=== PATIENT | male | born 1975 | race Caucasian/White ===

== ENCOUNTER 2017-08-17 11:27 | Observation (INO) | payer BC ==
[2017-08-17] MEDS ORDERED: Aspirin 81 MG Tab.Chew PO ONE (11:36)
[2017-08-17] MEDS ORDERED: Nitroglycerin 2% Oint 1 GM UD Packet TOP ONE (11:43)
--- NOTE | 2017-08-17 11:43 | EDM.PDOC ---
ED HPI GENERAL MEDICAL PROBLEM - General Chief Complaint: Chest Pain Stated Complaint: CHEST PAIN Time Seen by Provider: 08/17/17 11:38 - History of Present Illness INITIAL COMMENTS - FREE TEXT/NARRATIVE: HISTORY AND PHYSICAL: History of present illness: Patient is a 41-year-old white male history of hypertension who was also a smoker who presents with left-sided chest pain that started approximately 8 AM he describes this as a squeezing he denies associated shortness breath palpitations nausea vomiting or diaphoresis he does continue to have this pain at this time. Review of systems: As per history of present illness and below otherwise all systems reviewed and negative. Past medical history: As per history of present illness and as reviewed below otherwise noncontributory. Surgical history: As per history of present illness and as reviewed below otherwise noncontributory. Social history: No reported history of drug or alcohol abuse. Family history: As per history of present illness and as reviewed below otherwise noncontributory. Physical exam: HEENT: Atraumatic, normocephalic, pupils reactive, negative for conjunctival pallor or scleral icterus, mucous membranes moist, throat clear, neck supple, nontender, trachea midline. Lungs: Clear to auscultation, breath sounds equal bilaterally, chest nontender. Heart: S1S2, regular, negative for clicks, rubs, or JVD. Abdomen: Soft, nondistended, nontender. Negative for masses or hepatosplenomegaly. Negative for costovertebral tenderness. Pelvis: Stable nontender. Genitourinary: Deferred. Rectal: Deferred. Extremities: Atraumatic, negative for cords or calf pain. Neurovascular unremarkable. Neuro: Awake, alert, oriented. Cranial nerves II through XII unremarkable. Cerebellum unremarkable. Motor and sensory unremarkable throughout. Exam nonfocal. Diagnostics: CBC CMP troponin PT/INR chest x-ray EKG Therapeutics: IV O2 monitor aspirin 324 mg by mouth Nitropaste 1 inch to chest wall Impression: # 1 chest pain #2 history of hypertension Definitive disposition and diagnosis as appropriate pending reevaluation and review of above. - Related Data Allergies Allergy/AdvReac Type Severity Reaction Status Date / Time Penicillins Allergy Hives Verified 08/17/17 11:31 ED ROS GENERAL - Review of Systems Review Of Systems: ROS reveals no pertinent complaints other than HPI. ED EXAM, GENERAL - Physical Exam Exam: See Below Course - Vital Signs Last Recorded V/S: Last Vital Signs Temp 36.5 C 08/17/17 11:31 Pulse 85 08/17/17 12:06 Resp 20 08/17/17 12:06 BP 137/70 08/17/17 12:06 Pulse Ox 94 L 08/17/17 12:06 - Orders/Labs/Meds Orders: Active Orders 24 hr Category Date Time Status EKG Documentation Completion [RC] STAT Care 08/17/17 11:36 Active Nitroglycerin [Nitrostat] Med 08/17/17 11:36 Active 0.4 mg SL Q5M PRN Medication Orders Nitroglycerin (Nitrostat) 0.4 mg SL Q5M PRN PRN Reason: Chest Pain Last Admin: 08/17/17 11:59 Dose: 0.4 mg Admin: 08/17/17 11:49 Dose: 0.4 mg Labs: Laboratory Tests 08/17/17 08/17/17 Range/Units 11:43 11:43 WBC 10.97 (4.0-11.0) K/uL RBC 5.60 (4.50-5.90) M/uL Hgb 17.2 H (13.0-17.0) g/dL Hct 47.1 (38.0-50.0) % MCV 84.1 (80.0-98.0) fL MCH 30.7 (27.0-32.0) pg MCHC 36.5 (31.0-37.0) g/dL RDW Std Deviation 41.6 (28.0-62.0) fl RDW Coeff of Amanda 14 (11.0-15.0) % Plt Count 212 (150-400) K/uL MPV 10.00 (7.40-12.00) fL Neut % (Auto) 51.8 (48.0-80.0) % Lymph % (Auto) 38.8 (16.0-40.0) % [place] % (Auto) 7.6 (0.0-15.0) % Eos % (Auto) 1.5 (0.0-7.0) % Baso % (Auto) 0.3 (0.0-1.5) % Neut # (Auto) 5.7 (1.4-5.7) K/uL Lymph # (Auto) 4.3 H (0.6-2.4) K/uL [place] # (Auto) 0.8 (0.0-0.8) K/uL Eos # (Auto) 0.2 (0.0-0.7) K/uL Baso # (Auto) 0.0 (0.0-0.1) K/uL Nucleated RBC % 0.0 /100WBC Nucleated RBCs # 0 K/uL Sodium 141 (136-148) mmol/L Potassium 3.7 (3.5-5.1) mmol/L Chloride 103 (98-107) mmol/L Carbon Dioxide 26.6 (21.0-32.0) mmol/L BUN 14 (7.0-18.0) mg/dL Creatinine 0.9 (0.8-1.3) mg/dL Est Cr Clr Drug Dosing 123.05 mL/min Estimated GFR (MDRD) > 60.0 ml/min Glucose 117 H (74-106) mg/dL Calcium 9.7 (8.5-10.1) mg/dL Total Bilirubin 0.4 (0.2-1.0) mg/dL AST 25 (15-37) IU/L ALT 45 (14-63) IU/L Alkaline Phosphatase 83 (46-116) U/L Troponin I < 0.050 (0.000-0.056) ng/mL Total Protein 7.8 (6.4-8.2) g/dL Albumin 4.0 (3.4-5.0) g/dL Globulin 3.8 H (2.0-3.5) g/dL Albumin/Globulin Ratio 1.1 L (1.3-2.8) Meds: Medications Generic Name Dose Route Start Last Admin Trade Name Freq PRN Reason Stop Dose Admin Nitroglycerin 0.4 mg 08/17/17 11:36 08/17/17 11:59 Nitrostat SL 0.4 mg Q5M PRN Administration Chest Pain Discontinued Medications Generic Name Dose Route Start Last Admin Trade Name Freq PRN Reason Stop Dose Admin Aspirin 324 mg 08/17/17 11:36 08/17/17 11:50 Aspirin PO 08/17/17 11:37 324 mg ONETIME ONE Administration Nitroglycerin 1 gm 08/17/17 11:43 08/17/17 12:04 Nitro-Bid 2% TOP 08/17/17 11:44 1 gm ONETIME ONE Administration Departure - Departure Time of Disposition: 12:36 Disposition: Refer to Observation Condition: Good Clinical Impression: Chest pain - Discharge Information Forms: ED Department Discharge
[2017-08-17] MEDS: Nitroglycerin 0.4 MG Tab.SL SL PRN ×2 (11:49→11:59)
--- NOTE | 2017-08-17 12:22 | CR ---
EXAMINATION: Portable chest radiograph. HISTORY: Chest pain. FINDINGS: The trachea is midline. The cardiomediastinal silhouette is within normal limits. No pulmonary infilt rates, effusions or pneumothorax. Osseous structures appear unremarkable. IMPRESSION: No acute cardiopulmonary process.
[2017-08-17 12:28] LABS: CHLORIDE,CL 103 mmol/L (98-107); SODIUM,NA 141 mmol/L (136-148)
[2017-08-17] MEDS ORDERED: Ondansetron 4 MG Tab.DIS PO PRN (13:07)
[2017-08-17] MEDS ORDERED: Acetaminophen 325 MG Tab PO PRN (13:07)
[2017-08-17] MEDS ORDERED: Albuterol/Ipratropium 3.0-0.5 MG/3 ML Neb Soln NEB PRN (13:07)
[2017-08-17] MEDS ORDERED: Enoxaparin 40 MG/0.4 ML Syringe SUBCUT SCH (13:15)
--- NOTE | 2017-08-17 13:53 | PCM.HP ---
H&P History of Present Illness - General Date of Service: 08/17/17 Admit Problem/Dx: Admission Diagnosis/Problem Admission Diagnosis/Problem Chest pain Source of Information: Patient History Limitations: Reports: No Limitations - History of Present Illness Initial Comments - Free Text/Narative: 41-year-old male with hypertension and dyslipidemia that is being admitted for an ACS rule out. Patient began having chest pain at 8 AM this morning and felt a "weird sensation" in his left arm. The patient described his chest as tight at that time and squeezing. He did not have any shortness of breath, palpitations, nausea, vomiting or diaphoresis. No prior history of heart attack. States that his blood pressure has been well controlled with his current medications. He did take his blood pressure medications this morning. Patient is a current smoker. He currently denies any chest pain, palpitations, shortness of breath, wheezing, cough, abdominal pain, nausea, vomiting, aspiration, diarrhea, numbness/tingling/weakness in the upper and lower extremities bilaterally, fever. ER course: Patient was given 2 nitroglycerin which resolved his chest pain. CBC, CMP, initial troponin and chest x-ray were negative. Patient did receive an aspirin as well in the ER. chest Pain Score (Numeric/FACES): 8 - Related Data Allergies/Adverse Reactions: Allergies Allergy/AdvReac Type Severity Reaction Status Date / Time Penicillins Allergy Hives Verified 08/17/17 11:31 Home Medications: Home Meds Hydrochlorothiazide 1 tab PO DAILY 08/17/17 [History] Sertraline [Zoloft] 1 tab PO BEDTIME 08/17/17 [History] Simvastatin 40 mg PO BEDTIME 08/17/17 [History] amLODIPine Besylate [Amlodipine Besylate] 1 tab PO DAILY 08/17/17 [History] Past Medical History HEENT History: Reports: None Cardiovascular History: Reports: High Cholesterol, Hypertension Respiratory History: Reports: None Gastrointestinal History: Reports: None Genitourinary History: Reports: None Musculoskeletal History: Reports: None Neurological History: Reports: None Psychiatric History: Reports: None Endocrine/Metabolic History: Reports: None Hematologic History: Reports: None Immunologic History: Reports: None Oncologic (Cancer) History: Reports: None Dermatologic History: Reports: None - Past Surgical History Head Surgeries/Procedures: Reports: None HEENT Surgical History: Reports: None Cardiovascular Surgical History: Reports: None Respiratory Surgical History: Reports: None GI Surgical History: Reports: None Endocrine Surgical History: Reports: None Neurological Surgical History: Reports: None Musculoskeletal Surgical History: Reports: Other (See Below) Other Musculoskeletal Surgeries/Procedures:: knee surgery Oncologic Surgical History: Reports: None Dermatological Surgical History: Reports: None Social & Family History - Family History Family Medical History: Noncontributory - Tobacco Use Smoking Status *Q: Current Every Day Smoker Years of Tobacco use: 20 Packs/Tins Daily: 1 Used Tobacco, but Quit: No Second Hand Smoke Exposure: No - Caffeine Use Caffeine Use: Reports: Coffee - Recreational Drug Use Recreational Drug Use: No H&P Review of Systems - Review of Systems: Review Of Systems: See Below General: Reports: No Symptoms HEENT: Reports: No Symptoms Pulmonary: Reports: No Symptoms Cardiovascular: Reports: Chest Pain Gastrointestinal: Reports: No Symptoms Genitourinary: Reports: No Symptoms Musculoskeletal: Reports: No Symptoms Skin: Reports: No Symptoms Psychiatric: Reports: No Symptoms Neurological: Reports: No Symptoms Hematologic/Lymphatic: Reports: No Symptoms Immunologic: Reports: No Symptoms Exam - Exam Exam: See Below - Vital Signs Vital Signs: Last Vital Signs Temp 97 F 08/17/17 13:26 Pulse 74 08/17/17 13:26 Resp 18 08/17/17 13:26 BP 161/61 H 08/17/17 13:26 Pulse Ox 96 08/17/17 13:26 Weight: 312 lb 14.4 oz - Exam General: Alert, Oriented, Cooperative HEENT: Conjunctiva Clear, Hearing Intact, Mucosa Moist & [place], PERRLA Lungs: Clear to Auscultation, Normal Respiratory Effort Cardiovascular: Regular Rate, Regular Rhythm GI/Abdominal Exam: Normal Bowel Sounds, Soft, Non-Tender, No Organomegaly, No Distention, No Abnormal Bruit, No Mass, Pelvis Stable Extremities: Normal Inspection, Normal Range of Motion, Non-Tender, No Pedal Edema, Normal Capillary Refill Peripheral Pulses: 2+: Radial (L), Radial (R), Posterior Tibial (L), Posterior Tibial (R) Skin: Warm, Dry, Intact Neuro Extensive - Mental Status: Alert, Oriented x3, Normal Mood/Affect, Normal Cognition Psychiatric: Alert, Normal Affect, Normal Mood - Patient Data Lab Results Last 24 hrs: Laboratory Results - last 24 hr 08/17/17 08/17/17 Range/Units 11:43 11:43 WBC 10.97 (4.0-11.0) K/uL RBC 5.60 (4.50-5.90) M/uL Hgb 17.2 H (13.0-17.0) g/dL Hct 47.1 (38.0-50.0) % MCV 84.1 (80.0-98.0) fL MCH 30.7 (27.0-32.0) pg MCHC 36.5 (31.0-37.0) g/dL RDW Std Deviation 41.6 (28.0-62.0) fl RDW Coeff of Amanda 14 (11.0-15.0) % Plt Count 212 (150-400) K/uL MPV 10.00 (7.40-12.00) fL Neut % (Auto) 51.8 (48.0-80.0) % Lymph % (Auto) 38.8 (16.0-40.0) % [place] % (Auto) 7.6 (0.0-15.0) % Eos % (Auto) 1.5 (0.0-7.0) % Baso % (Auto) 0.3 (0.0-1.5) % Neut # (Auto) 5.7 (1.4-5.7) K/uL Lymph # (Auto) 4.3 H (0.6-2.4) K/uL [place] # (Auto) 0.8 (0.0-0.8) K/uL Eos # (Auto) 0.2 (0.0-0.7) K/uL Baso # (Auto) 0.0 (0.0-0.1) K/uL Nucleated RBC % 0.0 /100WBC Nucleated RBCs # 0 K/uL Sodium 141 (136-148) mmol/L Potassium 3.7 (3.5-5.1) mmol/L Chloride 103 (98-107) mmol/L Carbon Dioxide 26.6 (21.0-32.0) mmol/L BUN 14 (7.0-18.0) mg/dL Creatinine 0.9 (0.8-1.3) mg/dL Est Cr Clr Drug Dosing 123.05 mL/min Estimated GFR (MDRD) > 60.0 ml/min Glucose 117 H (74-106) mg/dL Calcium 9.7 (8.5-10.1) mg/dL Total Bilirubin 0.4 (0.2-1.0) mg/dL AST 25 (15-37) IU/L ALT 45 (14-63) IU/L Alkaline Phosphatase 83 (46-116) U/L Troponin I < 0.050 (0.000-0.056) ng/mL Total Protein 7.8 (6.4-8.2) g/dL Albumin 4.0 (3.4-5.0) g/dL Globulin 3.8 H (2.0-3.5) g/dL Albumin/Globulin Ratio 1.1 L (1.3-2.8) Result Diagrams: 08/17/17 11:43 08/17/17 11:43 - Problem List (1) Chest pain SNOMED Code(s): 94851367 ICD Code: R07.9 - CHEST PAIN, UNSPECIFIED Status: Acute Current Visit: No Problem List Initiated/Reviewed/Updated: Yes Orders Last 24hrs: Active Orders 24 hr Category Date Time Status Patient Status [ADT] Stat ADT 08/17/17 12:38 Active Cardiac Monitoring [RC] CONTINUOUS Care 08/17/17 13:07 Active Height and Weight [RC] DAILY Care 08/17/17 13:07 Active Intake and Output [RC] Q12H Care 08/17/17 13:07 Active Notify Provider Vital Signs [RC] ASDIRECTED Care 08/17/17 13:07 Active Oxygen Therapy [RC] PRN Care 08/17/17 13:07 Active Pulse Oximetry [RC] PRN Care 08/17/17 13:07 Active RT Aerosol Therapy [RC] ASDIRECTED Care 08/17/17 13:09 Active Telemetry Monitoring [Cardiac Monitoring] [RC] . Care 08/17/17 13:09 Active DIRECTED Up With Assistance [RC] ASDIRECTED Care 08/17/17 13:07 Active Vital Signs [RC] Q4H Care 08/17/17 13:07 Active Heart Healthy Diet [DIET] Diet 08/17/17 Breakfast Active TROPONIN I [CHEM] Q6H Lab 08/17/17 17:45 Ordered TROPONIN I [CHEM] Q6H Lab 08/17/17 23:45 Ordered Acetaminophen [Tylenol] Med 08/17/17 13:07 Active 650 mg PO Q4H PRN Albuterol/Ipratropium [DuoNeb 3.0-0.5 MG/3 ML] Med 08/17/17 13:07 Active 3 ml NEB Q4HRRT PRN Enoxaparin [Lovenox] Med 08/17/17 13:15 Active 40 mg SUBCUT Q24H Hydrochlorothiazide Med 08/18/17 09:00 Ordered 1 tab PO DAILY Nitroglycerin [Nitrostat] Med 08/17/17 11:36 Active 0.4 mg SL Q5M PRN Ondansetron [Zofran ODT] Med 08/17/17 13:07 Active 4 mg PO Q4H PRN Sertraline [Zoloft] Med 08/17/17 21:00 Ordered 1 tab PO BEDTIME Simvastatin [Zocor] Med 08/17/17 21:00 Ordered 40 mg PO BEDTIME amLODIPine Besylate Med 08/18/17 09:00 Ordered 1 tab PO DAILY Sequential Compression Device [OM.PC] Per Unit Routine Oth 08/17/17 13:08 Ordered Resuscitation Status Routine Resus Stat 08/17/17 13:07 Ordered Medication Orders Acetaminophen (Tylenol) 650 mg PO Q4H PRN PRN Reason: Pain (Mild 1-3)/fever Albuterol/Ipratropium (Duoneb 3.0-0.5 Mg/3 Ml) 3 ml NEB Q4HRRT PRN PRN Reason: Shortness Of Breath/wheezing Enoxaparin Sodium (Lovenox) 40 mg SUBCUT Q24H DEB Nitroglycerin (Nitrostat) 0.4 mg SL Q5M PRN PRN Reason: Chest Pain Last Admin: 08/17/17 11:59 Dose: 0.4 mg Admin: 08/17/17 11:49 Dose: 0.4 mg Ondansetron HCl (Zofran Odt) 4 mg PO Q4H PRN PRN Reason: nausea, able to take PO Assessment/Plan Comment:: 41-year-old male that is being admitted with chest pain. #1. Chest pain: -CBC, CMP, chest x-ray and initial troponin were negative. We will trend the troponins -Patient placed on telemetry. Home medications for dyslipidemia and hypertension were restarted. DVT prophylaxis: SCDs and Lovenox Disposition: Tomorrow serial troponins are negative.
[2017-08-17] MEDS ORDERED: Sertraline 50 MG Tab PO SCH (21:00)
[2017-08-17] MEDS ORDERED: Simvastatin 40 MG Tab PO SCH (21:00)
[2017-08-18] MEDS ORDERED: amLODIPine 5 MG Tab PO SCH (09:00)
[2017-08-18] MEDS ORDERED: Hydrochlorothiazide 25 MG Tab PO SCH (09:00)
--- NOTE | 2017-08-18 11:26 | PCM.DCSUM1 ---
Discharge Summary - Discharge Data Discharge Date: 08/18/17 Discharge Disposition: Home, Self-Care 01 Condition: Good - Patient Summary/Data Hospital Course: 41 yo male with past medical history of hypertension who was observed overnight due to chest pain. His chest pain resolved in the ED. He had no events on telemetry. He ruled out for acute coronary syndrome with serial negative troponins and EKG. He was discharged home to have follow up with with outpatient cardiac stress testing. - Patient Instructions Diet: Regular Diet as Tolerated - Discharge Plan Home Medications: Home Meds Hydrochlorothiazide 25 mg PO DAILY 08/17/17 [History] Sertraline [Zoloft] 50 mg PO BEDTIME 08/17/17 [History] Simvastatin 40 mg PO BEDTIME 08/17/17 [History] amLODIPine Besylate [Amlodipine Besylate] 10 mg PO DAILY 08/17/17 [History] Patient Handouts: Exercise Stress Echocardiogram, Care After, [id number], Exercise Stress Electrocardiogram, [id number], Chest Wall Pain, [id number] Referrals: Kelsey Mackay NP [Ordering Only Provider] - 08/24/17 10:15 am - Patient Data Vitals - Most Recent: Last Vital Signs Temp 36.6 C 08/18/17 08:00 Pulse 64 08/18/17 08:00 Resp 16 08/18/17 08:00 BP 117/64 08/18/17 08:56 Pulse Ox 93 L 08/18/17 08:00 Weight - Most Recent: 141.929 kg I&O - Last 24 hours: Intake & Output 08/17/17 08/18/17 08/18/17 22:59 06:59 14:59 Intake Total 200 150 Output Total 650 Balance 200 -500 Lab Results - Last 24 hrs: Laboratory Results - last 24 hr 08/17/17 08/17/17 08/17/17 Range/Units 11:43 11:43 17:44 WBC 10.97 (4.0-11.0) K/uL RBC 5.60 (4.50-5.90) M/uL Hgb 17.2 H (13.0-17.0) g/dL Hct 47.1 (38.0-50.0) % MCV 84.1 (80.0-98.0) fL MCH 30.7 (27.0-32.0) pg MCHC 36.5 (31.0-37.0) g/dL RDW Std Deviation 41.6 (28.0-62.0) fl RDW Coeff of Amanda 14 (11.0-15.0) % Plt Count 212 (150-400) K/uL MPV 10.00 (7.40-12.00) fL Neut % (Auto) 51.8 (48.0-80.0) % Lymph % (Auto) 38.8 (16.0-40.0) % [place] % (Auto) 7.6 (0.0-15.0) % Eos % (Auto) 1.5 (0.0-7.0) % Baso % (Auto) 0.3 (0.0-1.5) % Neut # (Auto) 5.7 (1.4-5.7) K/uL Lymph # (Auto) 4.3 H (0.6-2.4) K/uL [place] # (Auto) 0.8 (0.0-0.8) K/uL Eos # (Auto) 0.2 (0.0-0.7) K/uL Baso # (Auto) 0.0 (0.0-0.1) K/uL Nucleated RBC % 0.0 /100WBC Nucleated RBCs # 0 K/uL Sodium 141 (136-148) mmol/L Potassium 3.7 (3.5-5.1) mmol/L Chloride 103 (98-107) mmol/L Carbon Dioxide 26.6 (21.0-32.0) mmol/L BUN 14 (7.0-18.0) mg/dL Creatinine 0.9 (0.8-1.3) mg/dL Est Cr Clr Drug Dosing 123.05 mL/min Estimated GFR (MDRD) > 60.0 ml/min Glucose 117 H (74-106) mg/dL Calcium 9.7 (8.5-10.1) mg/dL Total Bilirubin 0.4 (0.2-1.0) mg/dL AST 25 (15-37) IU/L ALT 45 (14-63) IU/L Alkaline Phosphatase 83 (46-116) U/L Troponin I < 0.050 < 0.050 (0.000-0.056) ng/mL Total Protein 7.8 (6.4-8.2) g/dL Albumin 4.0 (3.4-5.0) g/dL Globulin 3.8 H (2.0-3.5) g/dL Albumin/Globulin Ratio 1.1 L (1.3-2.8) Triglycerides (0-200) mg/dL Cholesterol (50-200) mg/dL LDL Cholesterol, Calc (60-180) mg/dL VLDL Cholesterol (5-55) mg/dL HDL Cholesterol (40-60) mg/dL Cholesterol/HDL Ratio (3.3-6.0) 08/17/17 08/18/17 Range/Units 23:50 06:04 WBC (4.0-11.0) K/uL RBC (4.50-5.90) M/uL Hgb (13.0-17.0) g/dL Hct (38.0-50.0) % MCV (80.0-98.0) fL MCH (27.0-32.0) pg MCHC (31.0-37.0) g/dL RDW Std Deviation (28.0-62.0) fl RDW Coeff of Amanda (11.0-15.0) % Plt Count (150-400) K/uL MPV (7.40-12.00) fL Neut % (Auto) (48.0-80.0) % Lymph % (Auto) (16.0-40.0) % [place] % (Auto) (0.0-15.0) % Eos % (Auto) (0.0-7.0) % Baso % (Auto) (0.0-1.5) % Neut # (Auto) (1.4-5.7) K/uL Lymph # (Auto) (0.6-2.4) K/uL [place] # (Auto) (0.0-0.8) K/uL Eos # (Auto) (0.0-0.7) K/uL Baso # (Auto) (0.0-0.1) K/uL Nucleated RBC % /100WBC Nucleated RBCs # K/uL Sodium (136-148) mmol/L Potassium (3.5-5.1) mmol/L Chloride (98-107) mmol/L Carbon Dioxide (21.0-32.0) mmol/L BUN (7.0-18.0) mg/dL Creatinine (0.8-1.3) mg/dL Est Cr Clr Drug Dosing mL/min Estimated GFR (MDRD) ml/min Glucose (74-106) mg/dL Calcium (8.5-10.1) mg/dL Total Bilirubin (0.2-1.0) mg/dL AST (15-37) IU/L ALT (14-63) IU/L Alkaline Phosphatase (46-116) U/L Troponin I < 0.050 (0.000-0.056) ng/mL Total Protein (6.4-8.2) g/dL Albumin (3.4-5.0) g/dL Globulin (2.0-3.5) g/dL Albumin/Globulin Ratio (1.3-2.8) Triglycerides 183 (0-200) mg/dL Cholesterol 143 (50-200) mg/dL LDL Cholesterol, Calc 78 (60-180) mg/dL VLDL Cholesterol 36 (5-55) mg/dL HDL Cholesterol 28 L (40-60) mg/dL Cholesterol/HDL Ratio 5.1 (3.3-6.0) Med Orders - Current: Current Medications Acetaminophen (Tylenol) 650 mg PO Q4H PRN PRN Reason: Pain (Mild 1-3)/fever Last Admin: 08/17/17 19:20 Dose: 650 mg Albuterol/Ipratropium (Duoneb 3.0-0.5 Mg/3 Ml) 3 ml NEB Q4HRRT PRN PRN Reason: Shortness Of Breath/wheezing Amlodipine Besylate (Norvasc) 10 mg PO DAILY [facility] Last Admin: 08/18/17 08:56 Dose: 10 mg Enoxaparin Sodium (Lovenox) 40 mg SUBCUT Q24H [facility] Last Admin: 08/17/17 14:09 Dose: 40 mg Hydrochlorothiazide (Hydrochlorothiazide) 25 mg PO DAILY [facility] Last Admin: 08/18/17 08:57 Dose: 25 mg Nitroglycerin (Nitrostat) 0.4 mg SL Q5M PRN PRN Reason: Chest Pain Last Admin: 08/17/17 11:59 Dose: 0.4 mg Ondansetron HCl (Zofran Odt) 4 mg PO Q4H PRN PRN Reason: nausea, able to take PO Sertraline HCl (Zoloft) 50 mg PO BEDTIME [facility] Last Admin: 08/17/17 20:35 Dose: 50 mg Simvastatin (Zocor) 40 mg PO BEDTIME [facility] Last Admin: 08/17/17 20:36 Dose: 40 mg Discontinued Medications Aspirin (Aspirin) 324 mg PO ONETIME ONE Stop: 08/17/17 11:37 Last Admin: 08/17/17 11:50 Dose: 324 mg Nitroglycerin (Nitro-Bid 2%) 1 gm TOP ONETIME ONE Stop: 08/17/17 11:44 Last Admin: 08/17/17 12:04 Dose: 1 gm
== END 2017-08-18 11:52 | disposition home or self-care (01) ==
LOC: MW.ED 11:27 → MW.MS 12:44
PROVIDERS: ADMIT Internal Medicine; ATTEND Internal Medicine
DX: R07.9 Chest pain, unspecified (principal); I10 Essential (primary) hypertension; E78.5 Hyperlipidemia, unspecified; E78.00 Pure hypercholesterolemia, unspecified; F17.210 Nicotine dependence, cigarettes, uncomplicated; Z79.899 Other long term (current) drug therapy; Z88.0 Allergy status to penicillin
CPT/HCPCS: 36415; 71045; 80053; 80061; 84484; 85025; 93005; 99285; A9270; J1650; 96372; 99283; G0378